=== PATIENT | male | born 1985 | race Caucasian/White ===

== ENCOUNTER 2016-07-24 13:40 | Emergency (ER) | payer OTHER ==
[~2016-07-24] VITALS: Ht 172.7 cm; Wt 59.1 kg
[2016-07-24 13:47] VITALS: BP 145/86; PULSE 102; RESP 18; O2SAT 100
--- NOTE | 2016-07-24 13:58 | ED.REPORT ---
HPI-General Illness Date of Service Jul 24, 2016 ED Provider: Nirmal Medley DO Patient is a 31 year old male with a history of brain cancer who reports to the ED complaining of an episode of shakiness in his right hand. Pt consumed 7 drinks of alcohol last night, woke up and wasn't feeling well, and took a Zofran. Pt then began uncontrollably shaking, his abdomen, back and thighs began cramping and experienced a tingly feeling in his skin. Pt stated it looked similar to a seizure. This episode has occurred previously several years ago when he was dehydrated. Pt finished radiation 2 weeks ago and has had 2 craniotomies. Pt is currently on Zolamide. Pt c/o associated a slight headache. Nursing Notes Stated Complaint: HANDS SHAKING Chief Complaint: General Complaint Nursing Notes Reviewed: Yes Allergies: Coded Allergies: No Known Allergies (Unverified , 07/24/16) General Time Seen by MD: 13:57 Chief Complaint Other (uncontrollable shaking in right hand) Hx Obtained From: Patient Arrived By: Walk-in Sudden in Onset?: Yes Onset Occurred: 1 - 4 hours ago Symptom Duration: Since onset Severity: Current: No pain currently Severity: Maximum: No pain Recent Healthcare: Recent doctor visit, Recent hospitalization Past Medical History Past Medical History brain cancer Past Surgical History 2 craniotomies Smoking History Unknown if Ever Smoker Social History Drug Use: THC Review of Systems Full Review of Systems Neurologic: Reports: Headache, Numbness (tingling sensation in skin), Shaking ( and cramping in hands, back, and thighs) Complete sys rev & neg: except as marked. Physical Exam Vital Signs Vital Signs Date Time Temp Pulse Resp B/P Pulse Ox O2 Delivery O2 Flow Rate FiO2 07/24/16 15:44 75 16 123/81 100 Room Air 07/24/16 15:43 75 16 123/81 100 Room Air 07/24/16 13:47 35.8 102 18 145/86 100 Room Air Initial VS: Reviewed General/Constitutional: Well-developed, Well-nourished ENT: Mucous membranes moist, Conjunctiva normal, No scleral icterus Neck: Supple, Non-tender, Full range of motion Respiratory: Breath sounds normal, Clear to auscultation, No respiratory distress Cardiovascular: Regular rate & rhythm, Heart sounds normal, Intact distal pulses Abdomen / GI: Soft, Non-tender, No guarding, No rebound, No distention Extremities: Vascular intact, Neuro intact, No swelling, No tenderness Skin: Warm, Dry, No cyanosis Psychiatric: Mood/affect normal, Behavior normal, Normal thought content Head / Eyes: Normocephalic, PERRL R parietal scar on head normal Neurologic: Oriented X3, Speech NL, No motor deficits, No sensory deficits, CN II - XII intact, Cerebellar NL Interpretation & Diagnostics Lab Results Interpretation Result Diagram: 07/24/16 1400 07/24/16 1400 Test 07/24/16 14:00 White Blood Count 6.5th/mm3 (3.8-10.1) Red Blood Count 5.41mil/mm3 (4.40-5.80) Hemoglobin 17.2g/dL (13.8-17.2) Hematocrit 46.8% (41.0-50.0) Mean Corpuscular Volume 86.5fL (81-100) Mean Corpuscular Hemoglobin 31.8pg (27.0-35.0) Mean Corpuscular Hemoglobin Concent 36.8% (32.0-37.0) Red Cell Distribution Width 11.9% (12.3-15.4) Platelet Count 310bil/L (150-400) Neutrophils (%) (Auto) 65.7% (40-74) Lymphocytes (%) (Auto) 22.2% (14-46) Monocytes (%) (Auto) 10.2% (4-12) Eosinophils (%) (Auto) 0.9% (0-5) Basophils (%) (Auto) 0.8% (0-3) Sodium Level 143mEq/L (134-144) Potassium Level 3.5mEq/L (3.5-5.2) Chloride Level 102mEq/L (97-108) Carbon Dioxide Level 23mmol/L (18-29) Blood Urea Nitrogen 11mg/dL (6-20) Creatinine 0.81mg/dL (0.76-1.27) Estimat Glomerular Filtration Rate 119mL/min (>59) Glucose Level 103mg/dL (60-99) Calcium Level 9.7mg/dL (8.5-10.1) Magnesium Level 2.3mg/dL (1.6-2.6) Total Bilirubin 0.4mg/dL (0.0-1.2) Aspartate Amino Transf (AST/SGOT) 25U/L (0-50) Alanine Aminotransferase (ALT/SGPT) 26U/L (0-44) Alkaline Phosphatase 85U/L (25-150) Total Protein 8.1g/dL (6.4-8.4) Albumin 5.4g/dL (3.4-5.0) Lipase 25U/L (13-60) Phenytoin (Dilantin) Level 3.6uG/mL (10.0-20.0) CT Head Interpretation IMPRESSION: 1. No acute intracranial disease process. 2. Surgical resection cavities in the right parietal lobe. Please correlate with surgical history. Residual/recurrent neoplastic process cannot be excluded by CT imaging alone. 3. No intracranial hemorrhage. 4. No evidence of brain herniation or significant local mass effect. 5. Findings telephoned to Dr. Nirmal Medley on 07/24/2016 1439 hrs. Dictated by: Susan Amaya MD, PhD on 07/24/2016 at 14:41 Approved by: Susan Amaya MD, PhD on 07/24/2016 at 14:41 Study: Head CT no contrast Interpretation / Wet Read by: Interpret - Radiologist Re-Eval/Medical Decision Med Decision/Clinical Course Overall no acute life-threatening pathology can be found on significant mitral abnormality in patient's back to normal. He received IV fluids and on extra dose of Dilantin. Strict return and follow-up precautions given Time of Eval: 15:33 Re-Evaluation/Progress Note: Updated pt of labs and imaging results. Discussed plan for discharge and follow up. All questions addressed. Counseled Regarding: Diagnosis, Lab results, Need for follow-up, When/why to return to ED Discharge & Departure Primary Impression: Cramps, muscle, general Disposition: Home Discharge Condition All VS Reviewed: Yes Condition: Stable Additional Instructions: Overall your symptoms do not sound like a seizure. Your Dilantin levels today were low. You were given an extra dose of 300 mg in the ER today. Follow up with your neurologist for further care. Return to the ER if worse. Scribe Attestation Portion of this note were transcribed by Martina Guevara and Aden Santacruz. I, Dr. Cam Medley, personally performed the history, physcial exam, and medical decision-making: I reviewed and confirmed the accuracy for the information in the transcribed note. Signed by: arie Leon, 07/24/16 1534 Nirmal Medley DO Jul 24, 2016 13:58 ADEN SANTACRUZ Jul 24, 2016 14:09 Martina Guevara Jul 24, 2016 15:03
[2016-07-24] MEDS ORDERED: Ondansetron 2 mg/mL 2 mL Inj IVPUSH ONE (14:05)
[2016-07-24] MEDS ORDERED: 0.9% Sodium Chloride 1,000 ML IV ONE (14:05)
[2016-07-24 14:18] LABS: Mean Corpuscular Volume 86.5 fL (81-100)
[2016-07-24 14:21] LABS: BASOPHILS % (AUTO) 0.8 % (0-3); EOSINOPHILS % (AUTO) 0.9 % (0-5); MONOCYTES % (AUTO) 10.2 % (4-12); Mean Corpuscular Hemoglobin 31.8 pg (27.0-35.0); NEUTROPHILS % (AUTO) 65.7 % (40-74); Platelet Count 310 bil/L (150-400)
[2016-07-24 14:41] LABS: Magnesium 2.3 mg/dL (1.6-2.6)
--- NOTE | 2016-07-24 14:44 | DRSVH ---
PROCEDURE: CT BRAIN WITHOUT CONTRAST ([id number]) INDICATIONS: h/o brain CA, focal sz vs tremor TECHNIQUE: Noncontrast 4.5 mm thick angled axial sections acquired from the foramen magnum to the vertex, with c oronal reformats. COMPARISON: None. FINDINGS: Image quality: Excellent. CSF spaces: Basal cisterns are patent. No extra-axial fluid collections. Ventricles are normal in size and shape. Brain: No midline shift. No intracranial masses or hemorrhage. Cadet-white matter interface is norm al. Two small surgical resection cavity is noted in the right parietal lobe; please correlate with aguilar rgical history. Skull and face: Postsurgical changes compatible with prior right parietal-temporal craniotomy noted. Sinuses: Visualized sinuses and mastoids are clear. IMPRESSION: 1. No acute intracranial disease process. 2. Surgical resection cavities in the right parietal lobe. Please correlate with surgical history. Re sidual/recurrent neoplastic process cannot be excluded by CT imaging alone. 3. No intracranial hemorrhage. 4. No evidence of brain herniation or significant local mass effect. 5. Findings telephoned to Dr. Nirmal Medley on 07/24/2016 1439 hrs. Dictated by: Susan Amaya MD, PhD on 07/24/2016 at 14:41 Approved by: Susan Amaya MD, PhD on 07/24/2016 at 14:41
[2016-07-24] MEDS ORDERED: Phenytoin 100 mg ER Capsule PO ONE (15:25)
[2016-07-24 15:43] VITALS: BP 123/81; PULSE 75; RESP 16; O2SAT 100
[2016-07-24 15:44] VITALS: BP 123/81; PULSE 75; RESP 16; O2SAT 100
== END 2016-07-24 15:44 | disposition home or self-care (01) ==
LOC: SED 13:40
DX: R25.2 Cramp and spasm (principal); F12.10 Cannabis abuse, uncomplicated; Z85.841 Personal history of malignant neoplasm of brain
CPT/HCPCS: 36415; 70450; 80053; 80185; 83690; 83735; 85025; 96361; 96374; 99285; J2405; J7030